=== PATIENT | male | born 1985 | race Asian ===

== ENCOUNTER 2023-04-10 15:36 | Emergency (ER) | payer OTHER ==
[~2023-04-10] VITALS: Ht 172.7 cm; Wt 73.1 kg
[2023-04-10 15:43] VITALS: BP 142/95; O2SAT 98
[2023-04-10 16:44] LABS: HEMATOCRIT. 44.9 % (42.0-52.0); HEMOGLOBIN. 15.4 g/dL (14.0-18.0); LYMPHOCYTES % 18.6 % (20.0-50.0); MEAN CORPUSCULAR HEMOGLOBIN 30.6 pg (28.0-32.0); MEAN CORPUSCULAR VOLUME 89.1 fL (80.0-94.0); MEAN PLATELET VOLUME 8.5 fl (7.4-10.4); MONOCYTES % 10.2 % (2.0-8.0); NEUTROPHILS % 69.2 % (40.0-76.0); PLATELET 339 x1000/uL (130-400); RED BLOOD CELL COUNT 5.04 mill/uL (4.7-6.1); RED CELL DISTRIBUTION WIDTH 13.1 % (11.6-14.6)
[2023-04-10 16:57] LABS: CHLORIDE 107 mEq/L (98-107)
[2023-04-10] MEDS ORDERED: ACYCLOVIR 400 MG TABLET PO ONE (19:30)
[2023-04-10] MEDS ORDERED: PREDNISONE 20MG TABLET PO ONE (19:30)
[2023-04-10] MEDS ORDERED: HYPR15DR23 EACH EAR (19:36)
[2023-04-10] MEDS ORDERED: P50 MT (19:36)
[2023-04-10] MEDS ORDERED: ACYC200C31 MT (19:36)
[2023-04-10 19:59] VITALS: PULSE 99; RESP 21; TEMP 97.8
== END 2023-04-10 20:16 | disposition home or self-care (01) ==
LOC: ER 15:36
DX: G51.0 Bell's palsy (principal); I49.9 Cardiac arrhythmia, unspecified; Z88.6 Allergy status to analgesic agent
CPT/HCPCS: 99284; 80053; 85025; 36415; 93005; J7512